=== PATIENT | female | born 1985 | race Caucasian/White ===

== ENCOUNTER 2018-02-02 00:43 | Emergency (ER) | payer BC, MEDICAID, OTHER ==
[2018-02-02] MEDS ORDERED: Albuterol-Ipratrop 3 mg / 0.5 (3 ml) UD IH STA ×2 (00:52→01:41)
--- NOTE | 2018-02-02 01:07 | ED PDOC ---
Arrival/HPI - General Chief Complaint: Shortness Of Breath Time Seen by Provider: 02/02/18 00:47 Historian: Patient - History of Present Illness Narrative History of Present Illness (Text): 02/02/18 00:52 32 year old female, whose past medical history includes bronchial asthma, presents to the emergency department complaining of wheezing and shortness of breath. Patient states she ran out of asthma medication. Patient denies any fever, chills, chest pain, abdominal pain, nausea, vomiting, diarrhea, urinary symptoms, back pain, neck pain, headache, dizziness, or any other complaints. Symptom Onset: Sudden Symptom Course: Unchanged Activities at Onset: Light Context: Home Past Medical History - Provider Review Nursing Documentation Reviewed: Yes - Infectious Disease Hx of Infectious Diseases: None - Tetanus Immunization Tetanus Immunization: Unknown - Cardiac Hx Cardiac Disorders: No - Pulmonary Hx Asthma: Yes (HOSPITALIZED 2 MONTHS AGO FOR ASTHMA ATTACK) Hx Sleep Apnea: Yes - Neurological Hx Neurological Disorder: No - HEENT Hx HEENT Disorder: No - Renal Hx Renal Disorder: No - Endocrine/Metabolic Hx Endocrine Disorders: No - Hematological/Oncological Hx Anemia: Yes - Integumentary Hx Dermatological Disorder: No - Musculoskeletal/Rheumatological Hx Musculoskeletal Disorders: No - Gastrointestinal Hx Gastrointestinal Disorders: No - Genitourinary/Gynecological Hx Genitourinary Disorders: No - Psychiatric Hx Psychophysiologic Disorder: No Hx Substance Use: No - Surgical History Hx Section: Yes (x2) - Anesthesia Hx Anesthesia: Yes Hx Anesthesia Reactions: No Hx Malignant Hyperthermia: No - Suicidal Assessment Feels Threatened In Home Enviroment: No Family/Social History - Physician Review Nursing Documentation Reviewed: Yes Family/Social History: No Known Family HX Smoking Status: Never Smoked Hx Alcohol Use: No Hx Substance Use: No Allergies/Home Meds Allergies/Adverse Reactions: Allergies seafood Adverse Reaction (Severe, Uncoded 02/02/18 00:50) ANAPHYLAXIS updated 05/23/16 Home Medications: Home Meds Medication Instructions Recorded Confirmed Albuterol 0.083% [Albuterol 0.083% 3 ml IH PRN PRN 04/25/16 02/02/18 Inhal Heather (2.5 mg/3 ml) UD] Review of Systems - Physician Review All systems were reviewed & negative as marked: Yes - Review of Systems Constitutional: absent: Fevers, Other (Chills) Respiratory: SOB, Wheezing Cardiovascular: absent: Chest Pain Gastrointestinal: absent: Abdominal Pain, Diarrhea, Nausea, Vomiting Genitourinary Female: absent: Dysuria, Frequency, Hematuria Musculoskeletal: absent: Back Pain, Neck Pain Neurological: absent: Headache, Dizziness Physical Exam Vital Signs Reviewed: Yes Vital Signs Pulse Resp BP Pulse Ox 02/02/18 01:05 20 97 02/02/18 00:43 97 H 20 129/65 99 Appearance: Positive for: Well-Appearing, Non-Toxic, Comfortable Pain Distress: None Mental Status: Positive for: Alert and Oriented X 3 - Systems Exam Head: Present: Atraumatic, Normocephalic Pupils: Present: PERRL Extroacular Muscles: Present: EOMI Conjunctiva: Present: Normal Ears: Present: NORMAL TM (Intact bilaterally) Mouth: Present: Moist Mucous Membranes Neck: Present: Normal Range of Motion Respiratory/Chest: Present: Wheezes (Bilaterally ). No: Respiratory Distress, Accessory Muscle Use Cardiovascular: Present: Regular Rate and Rhythm, Normal S1, S2. No: Murmurs Abdomen: No: Tenderness, Distention, Peritoneal Signs Back: Present: Normal Inspection Upper Extremity: Present: Normal Inspection. No: Cyanosis, Edema Lower Extremity: Present: Normal Inspection. No: Edema Neurological: Present: GCS=15, CN II-XII Intact, Speech Normal Skin: Present: Warm, Dry, Normal Color. No: Rashes Psychiatric: Present: Alert, Oriented x 3, Normal Insight, Normal Concentration Medical Decision Making ED Course and Treatment: 02/02/18 00:35 Impression: 32 year old female presents complaining of wheezing and shortness of breath. Patient's past medical history includes Asthma. Plan: -- Duoneb, prednisone tab -- Reassess and disposition Progress Notes: - Medication Orders Current Medication Orders: Discontinued Medications Albuterol/Ipratropium (Duoneb 3 Mg/0.5 Mg (3 Ml) Ud) 3 ml IH ONCE STA Stop: 02/02/18 00:53 Last Admin: 02/02/18 01:23 Dose: 3 ml Albuterol/Ipratropium (Duoneb 3 Mg/0.5 Mg (3 Ml) Ud) 3 ml IH ONCE STA Stop: 02/02/18 01:42 Last Admin: 02/02/18 01:47 Dose: 3 ml Prednisone (Prednisone Tab) 60 mg PO ONCE STA Stop: 02/02/18 00:54 Last Admin: 02/02/18 01:21 Dose: 60 mg - Virgenibe Statement The provider has reviewed the documentation as recorded by the Jeancarlos Young Provider Jeancarlos Attestation: All medical record entries made by the Jeancarlos were at my direction and personally dictated by me. I have reviewed the chart and agree that the record accurately reflects my personal performance of the history, physical exam, medical decision making, and the department course for this patient. I have also personally directed, reviewed, and agree with the discharge instructions and disposition. Disposition/Present on Arrival - Present on Arrival Any Indicators Present on Arrival: No History of DVT/PE: No History of Uncontrolled Diabetes: No Urinary Catheter: No History of Decub. Ulcer: No History Surgical Site Infection Following: None - Disposition Have Diagnosis and Disposition been Completed?: Yes Diagnosis: Asthma exacerbation Disposition: HOME/ ROUTINE Disposition Time: 02:22 Patient Plan: Discharge Patient Problems: Current Active Problems Problem Status Onset Asthma exacerbation Acute Condition: GOOD Additional Instructions: Medication as prescribed/follow up with your doctor this week Prescriptions: predniSONE [Prednisone] 40 mg PO DAILY #10 tab Albuterol HFA [Ventolin HFA 90 mcg/actuation (8 g)] 2 puff IH [id number] PRN #1 puff PRN Reason: Wheezing Referrals: Dangelo Aponte Jr., MD [Primary Care Provider] - Follow up with primary Forms: [employer] (Greenlandic)
[2018-02-02 01:32] VITALS: BP 129/65; PULSE 97; RESP 20
[2018-02-02 02:24] VITALS: O2SAT 97
== END 2018-02-02 02:28 | disposition home or self-care (01) ==
LOC: ED 00:43
DX: J45.901 Unspecified asthma with (acute) exacerbation (principal)

== ENCOUNTER 2018-03-05 21:47 | Emergency (ER) | payer MEDICAID, OTHER ==
[2018-03-05 21:50] VITALS: BMI 38.9
[2018-03-05 21:55] VITALS: PULSE 82; RESP 19; TEMP 99; O2SAT 100
[2018-03-05] MEDS ORDERED: Levalbuterol 1.25 MG/3 ML Inhal Soln UD IH STA ×2 (21:56→21:57)
--- NOTE | 2018-03-05 22:12 | ED PDOC ---
Arrival/HPI - General Historian: Patient - General Chief Complaint: Allergic Reaction Time Seen by Provider: 03/05/18 21:50 - History of Present Illness Narrative History of Present Illness (Text): 03/05/18 22:05 32yo morbidly obese female with PMhx of Asthma bib EMS for allergic reaction. Patient states she thinks the food she was eating at a restaurant was contaminated with seafood, and her throat became tight. Notes that this triggered her Asthma. She was given Benadryl 50mg on the field. She denies tongue swelling, drooling, stridor, any other complaint. (Yogesh,Happiness A) Past Medical History - Provider Review Nursing Documentation Reviewed: Yes - Infectious Disease Hx of Infectious Diseases: None - Tetanus Immunization Tetanus Immunization: Unknown - Cardiac Hx Cardiac Disorders: No - Pulmonary Hx Asthma: Yes (HOSPITALIZED 2 MONTHS AGO FOR ASTHMA ATTACK) Hx Sleep Apnea: Yes - Neurological Hx Neurological Disorder: No - HEENT Hx HEENT Disorder: No - Renal Hx Renal Disorder: No - Endocrine/Metabolic Hx Endocrine Disorders: No - Hematological/Oncological Hx Anemia: Yes - Integumentary Hx Dermatological Disorder: No - Musculoskeletal/Rheumatological Hx Musculoskeletal Disorders: No - Gastrointestinal Hx Gastrointestinal Disorders: No - Genitourinary/Gynecological Hx Genitourinary Disorders: No - Psychiatric Hx Psychophysiologic Disorder: No Hx Substance Use: No - Surgical History Hx Section: Yes (x2) - Anesthesia Hx Anesthesia: Yes Hx Anesthesia Reactions: No Hx Malignant Hyperthermia: No - Suicidal Assessment Feels Threatened In Home Enviroment: No Family/Social History - Physician Review Nursing Documentation Reviewed: Yes Family/Social History: Unknown Family HX Smoking Status: Never Smoked Hx Alcohol Use: No Hx Substance Use: No Allergies/Home Meds Allergies/Adverse Reactions: Allergies shellfish derived Allergy (Verified 03/05/18 21:51) ANAPHYLAXIS seafood Adverse Reaction (Severe, Uncoded 02/02/18 00:50) ANAPHYLAXIS updated 05/23/16 Home Medications: Home Meds Medication Instructions Recorded Confirmed Albuterol 0.083% [Albuterol 0.083% 3 ml IH PRN PRN 04/25/16 02/02/18 Inhal Heather (2.5 mg/3 ml) UD] Review of Systems - Physician Review All systems were reviewed & negative as marked: Yes - Review of Systems Constitutional: Normal Eyes: Normal ENT: Normal Respiratory: SOB Cardiovascular: Normal Gastrointestinal: Normal Genitourinary Female: Normal Musculoskeletal: Normal Skin: Normal Neurological: Normal Endocrine: Normal Hemo/Lymphatic: Normal Psychiatric: Normal Physical Exam Vital Signs Reviewed: Yes Temperature: Afebrile Blood Pressure: Normal Pulse: Regular Respiratory Rate: Normal Appearance: Positive for: Well-Appearing, Non-Toxic, Comfortable Pain Distress: None Mental Status: Positive for: Alert and Oriented X 3 - Systems Exam Head: Present: Atraumatic, Normocephalic Pupils: Present: PERRL Extroacular Muscles: Present: EOMI Conjunctiva: Present: Normal Mouth: Present: Moist Mucous Membranes Neck: Present: Normal Range of Motion Respiratory/Chest: Present: Good Air Exchange, Wheezes (Diffuse expiratory wheeze). No: Respiratory Distress, Accessory Muscle Use, Decreased Breath Sounds, Rales, Retracting, Rhonchi Cardiovascular: Present: Regular Rate and Rhythm, Normal S1, S2. No: Murmurs Abdomen: No: Tenderness, Distention, Peritoneal Signs Back: Present: Normal Inspection Upper Extremity: Present: Normal Inspection. No: Cyanosis, Edema Lower Extremity: Present: Normal Inspection. No: Edema Neurological: Present: GCS=15, CN II-XII Intact, Speech Normal Skin: Present: Warm, Dry, Normal Color. No: Rashes Psychiatric: Present: Alert, Oriented x 3, Normal Insight, Normal Concentration Vital Signs Temp Pulse Resp Pulse Ox 03/05/18 21:51 99 F 82 19 100 Medical Decision Making ED Course and Treatment: 03/05/18 23:15 Pt presented for stated history. She was given Benadryl by EMS on the field. In ED Solu medrol and Pepcid was given in ED. On review pt states she feels much better. Her lung was CTA. she was talking in full sentence without distress. ( Diru,Happiness A) - Medication Orders Current Medication Orders: Discontinued Medications Famotidine (Pepcid 20mg/50ml Premix) 20 mg in 50 mls @ 100 mls/hr IVPB STAT STA Stop: 03/05/18 22:52 Last Admin: 03/05/18 22:37 Dose: 100 mls/hr eMAR Start Stop Document 03/05/18 22:37 GEORGE (Rec: 03/05/18 22:38 [facility] [place], [id number]) Intravenous Solution Start Date 03/05/18 Start Time 22:38 End Date 03/05/18 End time 22:53 Total Infusion Time 15 Levalbuterol HCl (Xopenex) 1.25 mg IH STAT STA Stop: 03/05/18 21:57 Last Admin: 03/05/18 22:21 Dose: 1.25 mg Levalbuterol HCl (Xopenex) 1.25 mg IH STAT STA Stop: 03/05/18 21:58 Last Admin: 03/05/18 22:03 Dose: 1.25 mg Methylprednisolone (Solu-Medrol) 125 mg IVP STAT STA Stop: 03/05/18 21:56 Last Admin: 03/05/18 22:02 Dose: 125 mg IVP Administration Document 03/05/18 22:02 GEORGE (Rec: 03/05/18 22:03 [facility] [place], [id number]) Charges for Administration # of IVP Administrations 1 Disposition/Present on Arrival - Present on Arrival Any Indicators Present on Arrival: No History of DVT/PE: No History of Uncontrolled Diabetes: No Urinary Catheter: No History of Decub. 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
[2018-03-05] MEDS ORDERED: Famotidine 20mg/50ml 20 MG/50 ML BAG IVPB STA (22:23)
== END 2018-03-05 23:50 | disposition home or self-care (01) ==
LOC: ED 21:47
DX: L50.9 Urticaria, unspecified (principal); E66.01 Morbid (severe) obesity due to excess calories
CPT/HCPCS: 96374; 99283; J2930

== ENCOUNTER 2018-12-26 23:43 | Emergency (ER) | payer MEDICAID ==
[2018-12-26 23:45] VITALS: BMI 38.9
[2018-12-27 00:01] VITALS: BP 126/80; PULSE 80; RESP 17; TEMP 98.2; O2SAT 100
--- NOTE | 2018-12-27 00:05 | ED PDOC ---
Arrival/HPI - General Chief Complaint: Female Genitourinary Time Seen by Provider: 12/26/18 23:46 - History of Present Illness Narrative History of Present Illness (Text): 12/27/18 00:46 Jay Jiménez is a 33 year old female, with a past medical history of bronchitis, yeast infection, asthma, gastrectomy, and , who presents to the emergency department complaining of white vaginal discharge, pain, swelling, and itching for 5 days. Patient informs she started control (Islibloom) 2 weeks ago and did not take control previously. Patient informs she is unable to walk secondary to pain. Patient informs taking antifungal medication such as monistat and fluconazole with significant improvement of previous maegan infections, but notes no significant improvement for current symptoms. Patient notes increased urinary frequency but no change in urine color. Patient also notes lightheadedness. Patient denies fevers, chills, headache, dizziness, chest pain, shortness of breath, dyspnea on exertion, cough, abdominal pain, nausea, vomiting, diarrhea, back pain, neck pain, or any other complaint. Time/Duration: < week (symptoms for 5 days; changed control 2 weeks ago) Symptom Onset: Gradual Symptom Course: Unchanged Activities at Onset: Light Context: Home Past Medical History - Provider Review Nursing Documentation Reviewed: Yes - Infectious Disease Hx of Infectious Diseases: None - Tetanus Immunization Tetanus Immunization: Unknown - Cardiac Hx Cardiac Disorders: No - Pulmonary Hx Asthma: Yes Hx Sleep Apnea: Yes - Neurological Hx Neurological Disorder: No - HEENT Hx HEENT Disorder: No - Renal Hx Renal Disorder: No - Endocrine/Metabolic Hx Endocrine Disorders: No - Hematological/Oncological Hx Anemia: Yes - Integumentary Hx Dermatological Disorder: No - Musculoskeletal/Rheumatological Hx Musculoskeletal Disorders: No - Gastrointestinal Hx Gastrointestinal Disorders: No - Genitourinary/Gynecological Hx Genitourinary Disorders: No - Psychiatric Hx Psychophysiologic Disorder: No Hx Substance Use: No - Surgical History Hx Section: Yes (x3) - Anesthesia Hx Anesthesia: Yes Hx Anesthesia Reactions: No Hx Malignant Hyperthermia: No - Suicidal Assessment Feels Threatened In Home Enviroment: No Family/Social History - Physician Review Nursing Documentation Reviewed: Yes Family/Social History: Diabetes Smoking Status: Never Smoked Hx Alcohol Use: No Hx Substance Use: No Allergies/Home Meds Allergies/Adverse Reactions: Allergies shellfish derived Allergy (Verified 12/27/18 00:01) ANAPHYLAXIS seafood Adverse Reaction (Severe, Uncoded 12/27/18 00:01) ANAPHYLAXIS updated 05/23/16 Home Medications: Home Meds Medication Instructions Recorded Confirmed Desogestrel-Ethinyl Estradiol 1 tab PO DAILY 12/27/18 12/27/18 [Isibloom 28 Day Tablet] Review of Systems - Physician Review All systems were reviewed & negative as marked: Yes - Review of Systems Constitutional: absent: Fevers, Night Sweats Respiratory: absent: SOB, Cough Cardiovascular: absent: Chest Pain, JOSHUA Gastrointestinal: absent: Abdominal Pain, Diarrhea, Nausea, Vomiting Genitourinary Female: Frequency (increased urinary frequency, no change in urine color), Vaginal Discharge (white discharge), Other (vaginal swelling, pain, itching) Musculoskeletal: absent: Back Pain, Neck Pain Neurological: Dizziness (lightheadedness). absent: Headache Physical Exam - Physical Exam Narrative Physical Exam (Text): 12/27/18 23:46 General: Obese. Vital Signs Reviewed: Yes Vital Signs Temp Pulse Resp BP Pulse Ox 12/27/18 00:01 98.2 F 80 17 126/80 100 Temperature: Afebrile Blood Pressure: Normal Pulse: Regular Respiratory Rate: Normal Appearance: Positive for: Well-Appearing, Non-Toxic, Comfortable Pain Distress: None Mental Status: Positive for: Alert and Oriented X 3 - Systems Exam Head: Present: Atraumatic, Normocephalic Pupils: Present: PERRL Extroacular Muscles: Present: EOMI Conjunctiva: Present: Normal Mouth: Present: Moist Mucous Membranes Neck: Present: Normal Range of Motion Respiratory/Chest: Present: Clear to Auscultation, Good Air Exchange. No: Respiratory Distress, Accessory Muscle Use Cardiovascular: Present: Regular Rate and Rhythm, Normal S1, S2. No: Murmurs Abdomen: No: Tenderness, Distention, Peritoneal Signs Genitourinary/Pelvic Exam: Present: Vaginal Discharge (white, thin discharge inside vaginal vault), Other (Slight uterine tenderness). No: Vaginal Lesions (No vulvar legions.), Adenexal Tenderness Back: Present: Normal Inspection Upper Extremity: Present: Normal Inspection. No: Cyanosis, Edema Lower Extremity: Present: Normal Inspection. No: Edema Neurological: Present: GCS=15, Speech Normal Skin: Present: Warm, Dry, Normal Color. No: Rashes Psychiatric: Present: Alert, Oriented x 3, Normal Insight, Normal Concentration Medical Decision Making ED Course and Treatment: 12/27/18 23:46 Impression: Patient is a 33 year old female who presents to the emergency department complaining of vaginal swelling, itching, and discharge after taking control. Differential Diagnosis included but are not limited to: Plan: -- Flagyl -- Urine Culture -- Urinalysis w/ Micro -- POC Urine Test -- Reassess and disposition Prior Visits: Notes and results from previous visits were reviewed. Progress Notes: - Scribe Statement The provider has reviewed the documentation as recorded by the Scribe Yousuf Hagan All medical record entries made by the Scribe were at my direction and personally dictated by me. I have reviewed the chart and agree that the record accurately reflects my personal performance of the history, physical exam, medical decision making, and the department course for this patient. I have also personally directed, reviewed, and agree with the discharge instructions and disposition. Disposition/Present on Arrival - Present on Arrival Any Indicators Present on Arrival: No History of DVT/PE: No History of Uncontrolled Diabetes: No Urinary Catheter: No History of Decub. Ulcer: No History Surgical Site Infection Following: None - Disposition Have Diagnosis and Disposition been Completed?: Yes Diagnosis: Adverse effects of medication, Vaginitis Disposition: HOME/ ROUTINE Disposition Time: 00:53 Patient Plan: Discharge Patient Problems: Current Active Problems Problem Status Onset Adverse effects of medication Acute Vaginitis Acute Condition: STABLE Discharge Instructions (ExitCare): Bacterial Vaginosis (DC), Adverse Drug Reactions, Adult (DC), Vaginitis Print Language: JAPANESE Additional Instructions: All medical record entries made by the Scribe were at my direction and personally dictated by me. I have reviewed the chart and agree that the record accurately reflects my personal performance of the history, physical exam, medical decision making, and the department course for this patient. I have also personally directed, reviewed, and agree with the discharge instructions and disposition. Please try to avoid sexual activity until you are able to visit your instructional technology coordinator Please take medication as prescribed. Please discuss with your instructional technology coordinator in regards to other control options Prescriptions: Metronidazole [Flagyl] 500 mg PO BID #14 tablet Referrals: Dangelo Aponte Jr., MD [Primary Care Provider] - Follow up with primary Benigno Delgado MD [Medical Doctor] - Follow up with primary Forms: [employer] ([place]er), WORK NOTE
[2018-12-27 00:33] LABS: URINE BILIRUBIN NEGATIVE (NEGATIVE); URINE BLOOD NEGATIVE (NEGATIVE); URINE GLUCOSE (UA) NEGATIVE (NEGATIVE); URINE LEUKOCYTE ESTERASE TRACE Leu/uL (NEGATIVE); URINE PROTEIN NEGATIVE mg/dL (<30 mg/dL); URINE UROBILINOGEN 0.2 E.U./dL (<1 E.U./dL)
[2018-12-27 00:38] LABS: URINE APPEARANCE CLEAR (CLEAR); URINE COLOR YELLOW (YELLOW)
[2018-12-27 00:52] LABS: URINE BACTERIA RARE /hpf
== END 2018-12-27 01:06 | disposition home or self-care (01) ==
LOC: ED 23:43
DX: N76.0 Acute vaginitis (principal); T50.995A Adverse effect of other drugs, medicaments and biological substances, initial encounter; Y92.89 Other specified places as the place of occurrence of the external cause

== ENCOUNTER 2019-03-10 12:57 | Observation (INO) | payer MEDICAID ==
--- NOTE | 2019-03-10 13:45 | ED PDOC ---
Arrival/HPI <Jareth Ocampo - Last Filed: 03/10/19 15:41> - General Historian: Patient - History of Present Illness Narrative History of Present Illness (Text): 03/10/19 13:44 Patient is a 33 yo obese female with asthma who presents with SOB. Patient states that she started to become more short of breath 2 days ago. She has been using her rescue inhaler every 4 hours without relief in addition to her daily asthma medications. She notes worsening associated symptoms of chest pain and cough. She describes subjective fevers and chills. She was last hospitalized 1 year ago for her asthma. She was intubated 5 years ago. Time/Duration: < week Symptom Onset: Gradual Symptom Course: Worsening <Elly Paiz - Last Filed: 03/10/19 16:05> - General Chief Complaint: Shortness Of Breath Time Seen by Provider: 03/10/19 13:23 Past Medical History - Provider Review Nursing Documentation Reviewed: Yes Primary Care Provider: Dangelo Aponte Jr. - Infectious Disease Hx of Infectious Diseases: None - Tetanus Immunization Tetanus Immunization: Unknown - Reproductive Menopause: No - Cardiac Hx Cardiac Disorders: No - Pulmonary Hx Asthma: Yes Hx Sleep Apnea: Yes - Neurological Hx Neurological Disorder: No - HEENT Hx HEENT Disorder: No - Renal Hx Renal Disorder: No - Endocrine/Metabolic Hx Endocrine Disorders: No - Hematological/Oncological Hx Anemia: Yes - Integumentary Hx Dermatological Disorder: No - Musculoskeletal/Rheumatological Hx Musculoskeletal Disorders: No - Gastrointestinal Hx Gastrointestinal Disorders: No - Genitourinary/Gynecological Hx Genitourinary Disorders: No - Psychiatric Hx Psychophysiologic Disorder: No Hx Substance Use: No - Surgical History Hx Section: Yes (x3) - Anesthesia Hx Anesthesia: Yes Hx Anesthesia Reactions: No Hx Malignant Hyperthermia: No - Suicidal Assessment Feels Threatened In Home Enviroment: No <Elly Paiz - Last Filed: 03/10/19 16:05> Family/Social History - Physician Review Nursing Documentation Reviewed: Yes Family/Social History: Unknown Family HX Smoking Status: Never Smoked Hx Alcohol Use: No Hx Substance Use: No <Elly Paiz - Last Filed: 03/10/19 16:05> Allergies/Home Meds <Jareth Ocampo - Last Filed: 03/10/19 15:41> <Elly Paiz - Last Filed: 03/10/19 16:05> Allergies/Adverse Reactions: Allergies shellfish derived Allergy (Verified 12/27/18 00:01) ANAPHYLAXIS seafood Adverse Reaction (Severe, Uncoded 12/27/18 00:01) ANAPHYLAXIS updated 05/23/16 Home Medications: Home Meds Medication Instructions Recorded Confirmed Prednisone 50 mg PO PRN 03/10/19 03/10/19 Review of Systems - Review of Systems Constitutional: Fevers Eyes: Normal ENT: Normal Respiratory: SOB, Cough, Wheezing. absent: Sputum Cardiovascular: Chest Pain, Palpitations Gastrointestinal: absent: Abdominal Pain, Nausea, Vomiting Genitourinary Female: absent: Dysuria, Hematuria Musculoskeletal: absent: Myalgias Skin: absent: Rash, Pruritis, Skin Lesions Neurological: absent: Headache, Dizziness Endocrine: absent: Diaphoresis Hemo/Lymphatic: absent: Adenopathy <Elly Paiz - Last Filed: 03/10/19 16:05> Physical Exam Vital Signs Temp Pulse Resp BP Pulse Ox 03/10/19 13:30 20 03/10/19 13:11 98.4 F 106 H 17 128/91 H 100 <Jareth Ocampo - Last Filed: 03/10/19 15:41> Vital Signs Reviewed: Yes Vital Signs Temp Pulse Resp BP Pulse Ox 03/10/19 13:11 98.4 F 106 H 17 128/91 H 100 Temperature: Afebrile Blood Pressure: Normal Pulse: Tachycardic Respiratory Rate: Normal Appearance: Positive for: Uncomfortable Pain Distress: Mild Mental Status: Positive for: Alert and Oriented X 3 - Systems Exam Head: Present: Atraumatic, Normocephalic Pupils: Present: PERRL Extroacular Muscles: Present: EOMI Conjunctiva: Present: Normal Mouth: Present: Moist Mucous Membranes Pharnyx: Present: Normal Neck: No: Lymphadenopathy Respiratory/Chest: Present: Wheezes, Decreased Breath Sounds. No: Respiratory Distress Cardiovascular: Present: Normal S1, S2, Tachycardic Back: Present: Normal Inspection Neurological: Present: GCS=15, CN II-XII Intact. No: Speech Normal (hoarse) Skin: Present: Warm, Dry, Normal Color Lymphatic: No: Cervical Adenopathy Psychiatric: Present: Alert, Oriented x 3, Normal Insight, Normal Concentration <Elly Paiz - Last Filed: 03/10/19 16:05> Medical Decision Making ED Course and Treatment: 03/10/19 15:28 Patient seen and examined with resident. 33 year old F with chief complaint of SOB x2days. Wheezing and decreased breath sounds noted - RAD Interpretation Radiology Orders: 03/10/19 13:49 CXR [CHEST PORTABLE] [RAD] Stat - Medication Orders Current Medication Orders: Discontinued Medications Albuterol/Ipratropium (Duoneb 3 Mg/0.5 Mg (3 Ml) Ud) 3 ml IH Q15M TRIPP Stop: 03/10/19 14:31 Last Admin: 03/10/19 14:27 Dose: 3 ml Methylprednisolone (Solu-Medrol) 125 mg IVP STAT STA Stop: 03/10/19 13:50 Last Admin: 03/10/19 14:10 Dose: 125 mg IVP Administration Document 03/10/19 14:10 EQ (Rec: 03/10/19 14:10 EQ [id number]) Charges for Administration # of IVP Administrations 1 <Jareth Ocampo - Last Filed: 03/10/19 15:41> ED Course and Treatment: 03/10/19 14:38 Patient reports feeling the same after 2 neb treatments. Wheezing still present. 03/10/19 15:57 Patient re-evaluated after 3 neb treatments. She states that she is still not feeling well. No respiratory distress. Wheezing present but improved. Discussed history of anemia. Patient's LMP 5/2. Never had a blood transfusion. Never took iron. 03/10/19 16:[address] Crawley who accepts the patient to hospitalist service for observation. Re-evaluation Time: 15:59 Reassessment Condition: Improving,but remains with symptoms - Lab Interpretations I have reviewed the lab results: Yes Interpretation: Abnormal lab values (elev WBC with left shift (18- post steroid), low Hgb (7), low K (3.2- post Duoneb)) - RAD Interpretation Radiology Orders: CXR Employment Training Specialist: ED Physician - EKG Interpretation EKG Interpretation (Text): 03/10/19 13:51 sinus tachycardia, LVH Interpreted by ED Physician: Yes Type: 12 lead EKG Comparison: Com.w/previous EKG - Medication Orders Current Medication Orders: 03/10/19 13:51 Duoneb x3 Solu-Medrol 125 mg IVP <Elly Paiz - Last Filed: 03/10/19 16:05> - Scribe Statement The provider has reviewed the documentation as recorded by the Jeancarlos Magaña All medical record entries made by the Scribe were at my direction and personally dictated by me. I have reviewed the chart and agree that the record accurately reflects my personal performance of the history, physical exam, medical decision making, and the department course for this patient. I have also personally directed, reviewed, and agree with the discharge instructions and disposition. <Jareth Ocampo - Last Filed: 03/10/19 15:41> Disposition/Present on Arrival <Jareth Ocampo - Last Filed: 03/10/19 15:41> - Present on Arrival Any Indicators Present on Arrival: No History of DVT/PE: No History of Uncontrolled Diabetes: No Urinary Catheter: No History of Decub. Ulcer: No History Surgical Site Infection Following: None - Disposition Have Diagnosis and Disposition been Completed?: Yes Disposition Time: 16:05 Patient Plan: Admission, Observation <Elly Paiz - Last Filed: 03/10/19 16:05> - Disposition Diagnosis: Asthma exacerbation, Acute on chronic anemia Disposition: HOSPITALIZED Condition: FAIR Referrals: Dangelo Aponte Jr., MD [Medical Doctor] - Follow up with primary Forms: iubenda (Djiboutian)
[2019-03-10] MEDS: Albuterol-Ipratrop 3 mg / 0.5 (3 ml) UD IH SCH ×2 (14:10→14:27)
[2019-03-10 15:41] LABS: ALB/GLOB RATIO 1.2 (1.1-1.8); ALBUMIN 4.3 g/dL (3.0-4.8); ALT/SGPT 18 U/L (7-56); AST/SGOT 20 U/L (14-36); BLOOD UREA NITROGEN 7 mg/dL (7-21); GFR NON-AFRICAN AMERICAN > 60
[2019-03-10 15:44] LABS: BASO # 0.03 K/mm3 (0.0-2.0); BASO % 0.2 % (0.0-3.0); EOS # 0.2 (0.0-0.7); EOS % 1.1 % (1.5-5.0); LYMPH # 2.1 (1.2-3.4); LYMPH % 11.6 % (22.0-35.0); MEAN CORPUSCULAR HEMOGLOBIN 15.4 pg (25.0-35.0); MONO # 0.6 (0.1-0.6); MONO % 3.2 % (1.0-6.0); PLATELET COUNT 404 10^3/uL (120.0-450.0); RBC 4.54 10^6/uL (3.5-6.1); RED CELL DISTRIBUTION WIDTH 20.9 % (11.5-14.5)
--- NOTE | 2019-03-10 17:31 | RAD ---
Date of service: 03/10/2019 HISTORY: Shortness of breath, wheezing COMPARISON: No prior. FINDINGS: LUNGS: No active pulmonary disease. PLEURA: No significant pleural effusion identified, no pneumothorax apparent. CARDIOVASCULAR: No atherosclerotic calcification present Normal. OSSEOUS STRUCTURES: No significant abnormalities. VISUALIZED UPPER ABDOMEN: Normal. OTHER FINDINGS: None. IMPRESSION: No active disease. Limitations of the current examination: Portable technique, poor inspiratory effort.
[2019-03-10] MEDS ORDERED: Potassium Chloride 20 mEq ER Tab PO STA ×2 (17:33→18:06)
[2019-03-10] MEDS ORDERED: Albuterol-Ipratrop 3 mg / 0.5 (3 ml) UD IH PRN (18:00)
[2019-03-10 18:52] LABS: IRON 20 ug/dL (45-180)
[2019-03-10 19:01] LABS: % IRON SATURATION 4 % (20-55); TOTAL IRON BINDING CAPACITY 458 ug/dL (265-497)
--- NOTE | 2019-03-10 19:08 | CP.PCM.HP ---
<Ana Dominguez - Last Filed: 03/10/19 18:57> History of Present Illness - History of Present Illness History of Present Illness: Ana Dominguez, PGY-1, Internal Medicine History and Physical for Dr. Crawley 33 year old female with past medical history of asthma and iron deficiency anemia presents with shortness of breath, wheezing, cough with yellow sputum for 2 days. Patient also complains of diffuse body pain worse with movement and not relieved with tylenol, ibuprofen, and prednisone. Patient also reports dizziness for the past 2 days and has not been able to do her daily activities. She reports having shortness of breath episodes twice a month during the day and once a weeks for nighttime symptoms. Patient reports she has generally been hospitalized 2-3 times per years for asthma and also goes to [facility] [place]. She reports using an albuterol inhaler daily. She reports seeing a student development specialist in [facility] for sleep apnea but cannot remember his name. She had an ap pointment 6 months ago for sleep study but was never given CPAP machine. Patient also reports having a history of iron deficiency anemia which she recently found out about. She reports her periods have been normal with no increase in bleeding and occur once a month for 5-7 days. She reports no dizziness with periods. She has never been treated for iron deficiency anemia. She reports never having been on treatment for iron deficiency anemia. She denies nausea, vomiting, constipation diarrhea, dysuria, hematuria. 12-point ROS was unremarkable except for what was mentioned above. PMH: as stated above PSH: 3 C sections in 2006, 2010, 2015 FMHx: Mother: diabetes, hypertension, Father: asthma SHx: denies alcohol, tobacco, or recreational drug use. She works for [employer] Allergies: seafood PMD: Dr. Aponte in [place] Pharmacy: [facility] [address] Home Medications: last picked up in December: Desogestrl/Ethinyl estradiol 1 pill daily. No inhalers. Confirmed with pharmacy Present on Admission - Present on Admission Any Indicators Present on Admission: No Review of Systems - Review of Systems Review of Systems: except as mentioned in HPI Past Patient History - Infectious Disease Hx of Infectious Diseases: None - Tetanus Immunizations Tetanus Immunization: Unknown - Past Medical History & Family History Past Medical History?: Yes - Past Social History Smoking Status: Never Smoked - CARDIAC Hx Cardiac Disorders: No - PULMONARY Hx Asthma: Yes Hx Sleep Apnea: Yes - NEUROLOGICAL Hx Neurological Disorder: No - HEENT Hx HEENT Problems: No - RENAL Hx Chronic Kidney Disease: No - ENDOCRINE/METABOLIC Hx Endocrine Disorders: No - HEMATOLOGICAL/ONCOLOGICAL Hx Anemia: Yes - INTEGUMENTARY Hx Dermatological Problems: No - MUSCULOSKELETAL/RHEUMATOLOGICAL Hx Musculoskeletal Disorders: No - GASTROINTESTINAL Hx Gastrointestinal Disorders: No - GENITOURINARY/GYNECOLOGICAL Hx Genitourinary Disorders: No - PSYCHIATRIC Hx Psychophysiologic Disorder: No Hx Substance Use: No - SURGICAL HISTORY Hx Section: Yes (x3) - ANESTHESIA Hx Anesthesia: Yes Hx Anesthesia Reactions: No Hx Malignant Hyperthermia: No Meds Home Medications: Home Medication List Medication Instructions Recorded Confirmed Type Albuterol/Ipratropium [Duoneb 3 3 ml IH [id number] #6 neb 03/11/19 Rx mg/0.5 mg (3 ml) UD] Arformoterol [Brovana] 15 mcg IH [id number] #28 neb 03/11/19 Rx Budesonide [Pulmicort Respules] 0.5 mg IH [id number] #28 neb 03/11/19 Rx Docusate Sodium [Colace] 100 mg PO BID #14 capsule 03/11/19 Rx Ferrous Gluconate 324 mg PO TID #90 tablet 03/11/19 Rx Methylprednisolone [Medrol Dose 4 mg PO DAILY #21 mg 03/11/19 Rx Pack (21 tabs)] Multivitamin [Multiple Vitamins] 1 each PO DAILY #30 tablet 03/11/19 Rx Allergies/Adverse Reactions: Allergies Allergy/AdvReac Type Severity Reaction Status Date / Time shellfish derived Allergy ANAPHYLAXIS Verified 03/10/19 18:57 seafood AdvReac Severe ANAPHYLAXIS Uncoded 03/10/19 18:57 Physical Exam - Constitutional Appears: Well, Non-toxic, No Acute Distress - Head Exam Head Exam: ATRAUMATIC, NORMAL INSPECTION, NORMOCEPHALIC - Eye Exam Eye Exam: EOMI, PERRL - ENT Exam ENT Exam: Mucous Membranes Moist - Neck Exam Neck exam: Positive for: Normal Inspection - Respiratory Exam Respiratory Exam: Wheezes (mild), NORMAL BREATHING PATTERN. absent: Rales, Rhonchi, Stridor - Cardiovascular Exam Cardiovascular Exam: Tachycardia, REGULAR RHYTHM, +S1, +S2. absent: Clicks, Gallop, Rubs - GI/Abdominal Exam GI & Abdominal Exam: Normal Bowel Sounds, Soft. absent: Distended, Firm, Guarding, Tenderness - Extremities Exam Extremities exam: Positive for: full ROM, normal inspection - Neurological Exam Neurological exam: Alert, CN II-XII Intact, Oriented x3 - Psychiatric Exam Psychiatric exam: Normal Affect, Normal Mood - Skin Skin Exam: Dry, Intact, Normal Color Results - Vital Signs Recent Vital Signs: Last Vital Signs Temp 98.0 F 03/10/19 18:01 Pulse 103 H 03/10/19 18:01 Resp 18 03/10/19 18:01 BP 117/74 03/10/19 18:01 Pulse Ox 100 03/10/19 18:01 - Labs Result Diagrams: 03/10/19 15:20 03/10/19 15:20 Labs: Laboratory Results - last 24 hr 03/10/19 03/10/19 03/10/19 15:20 15:20 15:20 WBC 18.0 H RBC 4.54 Hgb 7.0 L Hct 25.9 L MCV 57.0 L MCH 15.4 L MCHC 27.0 L RDW 20.9 H Plt Count 404 Neut % (Auto) 83.9 H Lymph % (Auto) 11.6 L [place] % (Auto) 3.2 Eos % (Auto) 1.1 L Baso % (Auto) 0.2 Lymph # (Auto) 2.1 [place] # (Auto) 0.6 Eos # (Auto) 0.2 Baso # (Auto) 0.03 Absolute Neuts (auto) 15.12 H Sodium 140 Potassium 3.2 L Chloride 105 Carbon Dioxide 25 Anion Gap 13 BUN 7 Creatinine 0.7 Est GFR ( Amer) > 60 Est GFR (Non-Af Amer) > 60 Random Glucose 110 Calcium 9.0 Phosphorus 3.0 Magnesium 1.8 Iron Total Bilirubin 0.6 AST 20 ALT 18 Alkaline Phosphatase 50 Troponin I < 0.01 Total Protein 7.9 Albumin 4.3 Globulin 3.6 Albumin/Globulin Ratio 1.2 Influenza Typ A,B (EIA) Blood Type Antibody Screen Crossmatch BBK History Checked 03/10/19 03/10/19 03/10/19 17:35 18:15 18:38 WBC RBC Hgb Hct MCV MCH MCHC RDW Plt Count Neut % (Auto) Lymph % (Auto) [place] % (Auto) Eos % (Auto) Baso % (Auto) Lymph # (Auto) [place] # (Auto) Eos # (Auto) Baso # (Auto) Absolute Neuts (auto) Sodium Potassium Chloride Carbon Dioxide Anion Gap BUN Creatinine Est GFR ( Amer) Est GFR (Non-Af Amer) Random Glucose Calcium Phosphorus Magnesium Iron 20 L Total Bilirubin AST ALT Alkaline Phosphatase Troponin I Total Protein Albumin Globulin Albumin/Globulin Ratio Influenza Typ A,B (EIA) Negative for flu a/b Blood Type O POSITIVE Antibody Screen Negative Crossmatch See Detail BBK History Checked Patient has bt Assessment & Plan - Assessment and Plan (Free Text) Assessment: 33 year old female with past medical history of asthma and iron deficiency anemia presented with shortness of breath and generalized body aches likely 2/2 to asthma or iron deficiency anemia Plan: Asthma exacerbation -Given solumedrol 125 and duonebs in the emergency department -Start patient on duonebs 3 Q6 and Q2PRN for shortness of breath -Start brovana and pulmicort -Start solumedrol 40 Q12 from tomorrow -Influenza negative -O2 nasal cannula as needed for O2<93% Iron deficiency anemia -Hgb: 7 with baseline 8-9 -Type and screen -Type and Crossmatch -Will transfuse 1 U of PRBCs -Will give venofer 200 for 2 days -Will obtain iron, TIBC, ferritin Atypical chest pain -EKG: sinus tachycardia with HR: 108 -Will obtain troponinx3 to rule out NSTEMI Hypokalemia -Replete as necessary GI prophylaxis: protonix DVT prophylaxis: lovenox Patient plan discussed with Dr. Crawley - Date & Time Date: 03/10/19 Time: 19:09 <Lizzette Crawley - Last Filed: 03/11/19 18:47> Results - Vital Signs Recent Vital Signs: Last Vital Signs Temp 98.5 F 03/11/19 14:33 Pulse 106 H 03/11/19 14:33 Resp 16 03/11/19 14:33 BP 123/67 03/11/19 14:33 Pulse Ox 99 03/11/19 06:00 - Labs Result Diagrams: 03/11/19 05:20 03/11/19 05:20 Labs: Laboratory Results - last 24 hr 03/10/19 03/10/19 03/10/19 17:35 18:15 18:38 WBC RBC Hgb Hct MCV MCH MCHC RDW Plt Count Neut % (Auto) Lymph % (Auto) [place] % (Auto) Eos % (Auto) Baso % (Auto) Lymph # (Auto) [place] # (Auto) Eos # (Auto) Baso # (Auto) Absolute Neuts (auto) Neutrophils % (Manual) Band Neutrophils % Lymphocytes % (Manual) Monocytes % (Manual) Metamyelocytes % Platelet Evaluation Polychromasia Hypochromasia Anisocytosis (manual) Ovalocytes Sodium Potassium Chloride Carbon Dioxide Anion Gap BUN Creatinine Est GFR ( Amer) Est GFR (Non-Af Amer) Random Glucose Calcium Phosphorus Magnesium Iron TIBC % Saturation Ferritin 5.9 Total Bilirubin AST ALT Alkaline Phosphatase Troponin I Total Protein Albumin Globulin Albumin/Globulin Ratio Vitamin B12 Folate Influenza Typ A,B (EIA) Negative for flu a/b Blood Type O POSITIVE Antibody Screen Negative Crossmatch See Detail BBK History Checked Patient has bt 03/10/19 03/10/19 03/11/19 18:38 23:16 05:20 WBC RBC Hgb Hct MCV MCH MCHC RDW Plt Count Neut % (Auto) Lymph % (Auto) [place] % (Auto) Eos % (Auto) Baso % (Auto) Lymph # (Auto) [place] # (Auto) Eos # (Auto) Baso # (Auto) Absolute Neuts (auto) Neutrophils % (Manual) Band Neutrophils % Lymphocytes % (Manual) Monocytes % (Manual) Metamyelocytes % Platelet Evaluation Polychromasia Hypochromasia Anisocytosis (manual) Ovalocytes Sodium 142 Potassium 4.4 Chloride 108 H Carbon Dioxide 25 Anion Gap 14 BUN 8 Creatinine 0.6 L Est GFR ( Amer) > 60 Est GFR (Non-Af Amer) > 60 Random Glucose 129 H Calcium 9.5 Phosphorus Magnesium Iron 20 L TIBC 458 % Saturation 4 L Ferritin Total Bilirubin 0.3 AST 24 ALT 13 Alkaline Phosphatase 47 Troponin I < 0.01 < 0.01 Total Protein 7.7 Albumin 4.0 Globulin 3.7 Albumin/Globulin Ratio 1.1 Vitamin B12 Folate Influenza Typ A,B (EIA) Blood Type Antibody Screen Crossmatch BBK History Checked 03/11/19 03/11/19 03/11/19 05:20 07:55 18:00 WBC 19.3 H RBC 4.71 Hgb 7.8 L Hct 28.2 L MCV 59.9 L MCH 16.6 L MCHC 27.7 L RDW 23.7 H Plt Count 407 Neut % (Auto) 92.4 H Lymph % (Auto) 5.5 L [place] % (Auto) 2.1 Eos % (Auto) 0.0 L Baso % (Auto) 0.0 Lymph # (Auto) 1.1 L [place] # (Auto) 0.4 Eos # (Auto) 0.0 Baso # (Auto) 0.00 Absolute Neuts (auto) 17.85 H Neutrophils % (Manual) 79 H Band Neutrophils % 7 H Lymphocytes % (Manual) 10 L Monocytes % (Manual) 3 Metamyelocytes % 1 Platelet Evaluation Normal Polychromasia Slight Hypochromasia 2+ Anisocytosis (manual) 1+ Ovalocytes Slight Sodium Potassium Chloride Carbon Dioxide Anion Gap BUN Creatinine Est GFR ( Amer) Est GFR (Non-Af Amer) Random Glucose Calcium Phosphorus 4.1 Magnesium 2.2 Iron TIBC % Saturation Ferritin Total Bilirubin AST ALT Alkaline Phosphatase Troponin I Total Protein Albumin Globulin Albumin/Globulin Ratio Vitamin B12 295 Folate 4.9 Influenza Typ A,B (EIA) Blood Type Antibody Screen Crossmatch BBK History Checked Attending/Attestation - Attestation I have personally seen and examined this patient.: Yes I have fully participated in the care of the patient.: Yes I have reviewed all pertinent clinical information: Yes Notes (Text): 03/11/19 18:42 Attending note; Patient seen and examined with resident in ER. Patient is alert and awake. Complaining of extreme tiredness and not able to do her daily activities. Denies any fevers, chills. Complaining of generalized body ache. Complaining of cough and shortness of breath and wheezing. Patient is a 33 year old female with past medical history of asthma and iron deficiency anemia presents with shortness of breath, wheezing, cough with yellow sputum for 2 days. Patient also complains of diffuse body pain. 1. Acute asthma exacerbation; started on duo nebs, IV Solu-Medrol, Pulmicort. 2. Severe symptomatic iron deficiency anemia PRBC transfusion ordered. Consent obtained. Risks and benefits explained to the patient in detail. 3. Dysfunctional uterine bleeding; patient currently has no active bleeding. Used to take oral contraceptive pills. Stopped 2 months ago. Advised to follow-up with H[employer] [employer] TRAINER as outpatient. 4. Myalgia; influenza is negative. 5. Chest discomfort; EKG is normal. Cardiac enzymes negative. Monitor closely. Upon discharge the patient will follow up with PMD Dr. Aponte. Patient needs close follow-up with HUMAN RESOURCES TRAINER as outpatient.
[2019-03-10] MEDS ORDERED: Arformoterol 15 mcg/2 ml Inh Sol IH SCH (20:00)
[2019-03-10 22:30] VITALS: BMI 41.6
[2019-03-10] MEDS ORDERED: Pneumococcal 23-Valent Vaccine IM ONE (22:30)
[2019-03-11] MEDS: Budesonide 0.5 mg/2 ml Inhal Susp UD IH SCH ×3 (00:04→20:03)
[2019-03-11] MEDS: Arformoterol 15 mcg/2 ml Inh Sol IH SCH ×3 (00:04→20:02)
[2019-03-11] MEDS: Albuterol-Ipratrop 3 mg / 0.5 (3 ml) UD IH SCH ×5 (00:05→20:02)
[2019-03-11] MEDS ORDERED: Pantoprazole 40 mg EC Tab PO SCH (06:00)
[2019-03-11 06:03] LABS: HEMOGLOBIN 7.8 g/dL (12.0-16.0); LYMPH # 1.1 (1.2-3.4); LYMPH % 5.5 % (22.0-35.0); MEAN CELL VOLUME 59.9 fl (80.0-105.0); MEAN CORPUSCULAR HEMOGLOBIN 16.6 pg (25.0-35.0); MEAN CORPUSCULAR HGB CONC 27.7 g/dl (31.0-37.0); MONO # 0.4 (0.1-0.6); MONO % 2.1 % (1.0-6.0); PLATELET COUNT 407 10^3/uL (120.0-450.0); RBC 4.71 10^6/uL (3.5-6.1); RED CELL DISTRIBUTION WIDTH 23.7 % (11.5-14.5); WHITE BLOOD COUNT 19.3 10^3/uL (4.5-11.0)
[2019-03-11 06:29] LABS: TROPONIN I < 0.01 ng/mL
[2019-03-11 06:55] LABS: ALB/GLOB RATIO 1.1 (1.1-1.8); ALT/SGPT 13 U/L (7-56); AST/SGOT 24 U/L (14-36); BLOOD UREA NITROGEN 8 mg/dL (7-21); CALCIUM 9.5 mg/dL (8.4-10.5); GFR NON-AFRICAN AMERICAN > 60
[2019-03-11] MEDS ORDERED: MethylPREDNISolone 40 mg Vial IVP SCH (07:00)
[2019-03-11 07:05] LABS: BAND 7 % (0-2); LYMPHOCYTE 10 % (22.0-35.0); NEUTROPHIL 79 % (50.0-70.0)
[2019-03-11 07:06] LABS: HYPOCHROMIA 2+; METAMYELOCYTE 1 %; MONOCYTE 3 % (1.0-6.0); PLATELET ESTIMATE NORMAL (NORMAL); POLYCHROMASIA SLIGHT
[2019-03-11 07:07] LABS: ANISOCYTOSIS 1+; OVALOCYTES SLIGHT
[2019-03-11 09:09] VITALS: O2SAT 99
[2019-03-11] MEDS ORDERED: Enoxaparin 40 mg Syringe SC SCH (10:00)
[2019-03-11 11:13] VITALS: RESP 16
--- NOTE | 2019-03-11 11:53 | CARD ---
APPROVED REPORT Date of service: 03/10/2019 EKG Measurement Heart [id number] <Conclusion> Sinus tachycardia Possible Left atrial enlargement Left ventricular hypertrophy Abnormal ECG
[2019-03-11 12:21] LABS: FOLATE 4.9 ng/mL
[2019-03-11 14:33] VITALS: BP 123/67; PULSE 106; TEMP 98.5
--- NOTE | 2019-03-11 18:05 | CP.PCM.DIS ---
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 Referral Routine Comment: ASTHMA EXACERBATION Physician Instructions: Reason For Exam: EVALUATION Transition In Care/Readmission Reduction Routine Comment: Physician Instructions: Reason For Exam: EVALUATION Time Spent in preparation of Discharge (in minutes): 45 Hospital Course - Lab Results Lab Results: Most Recent Lab Values WBC 19.3 10^3/uL (4.5-11.0) H 03/11/19 05:20 RBC 4.71 10^6/uL (3.5-6.1) 03/11/19 05:20 Hgb 7.8 g/dL (12.0-16.0) L 03/11/19 05:20 Hct 28.2 % (36.0-48.0) L 03/11/19 05:20 MCV 59.9 fl (80.0-105.0) L 03/11/19 05:20 MCH 16.6 pg (25.0-35.0) L 03/11/19 05:20 MCHC 27.7 g/dl (31.0-37.0) L 03/11/19 05:20 RDW 23.7 % (11.5-14.5) H 03/11/19 05:20 Plt Count 407 10^3/uL (120.0-450.0) 03/11/19 05:20 Neut % (Auto) 92.4 % (50.0-68.0) H 03/11/19 05:20 Lymph % (Auto) 5.5 % (22.0-35.0) L 03/11/19 05:20 Stewart % (Auto) 2.1 % (1.0-6.0) 03/11/19 05:20 Eos % (Auto) 0.0 % (1.5-5.0) L 03/11/19 05:20 Baso % (Auto) 0.0 % (0.0-3.0) 03/11/19 05:20 Lymph # (Auto) 1.1 (1.2-3.4) L 03/11/19 05:20 Stewart # (Auto) 0.4 (0.1-0.6) 03/11/19 05:20 Eos # (Auto) 0.0 (0.0-0.7) 03/11/19 05:20 Baso # (Auto) 0.00 K/mm3 (0.0-2.0) 03/11/19 05:20 Absolute Neuts (auto) 17.85 (1.4-6.5) H 03/11/19 05:20 Neutrophils % (Manual) 79 % (50.0-70.0) H 03/11/19 05:20 Band Neutrophils % 7 % (0-2) H 03/11/19 05:20 Lymphocytes % (Manual) 10 % (22.0-35.0) L 03/11/19 05:20 Monocytes % (Manual) 3 % (1.0-6.0) 03/11/19 05:20 Metamyelocytes % 1 % 03/11/19 05:20 Platelet Evaluation Normal (NORMAL) 03/11/19 05:20 Polychromasia Slight 03/11/19 05:20 Hypochromasia 2+ 03/11/19 05:20 Anisocytosis (manual) 1+ 03/11/19 05:20 Ovalocytes Slight 03/11/19 05:20 Sodium 142 mmol/L (132-148) 03/11/19 05:20 Potassium 4.4 mmol/L (3.6-5.0) 03/11/19 05:20 Chloride 108 mmol/L (98-107) H 03/11/19 05:20 Carbon Dioxide 25 mmol/L (21-33) 03/11/19 05:20 Anion Gap 14 (10-20) 03/11/19 05:20 BUN 8 mg/dL (7-21) 03/11/19 05:20 Creatinine 0.6 mg/dl (0.7-1.2) L 03/11/19 05:20 Est GFR ( Amer) > 60 03/11/19 05:20 Est GFR (Non-Af Amer) > 60 03/11/19 05:20 Random Glucose 129 mg/dL (70-110) H 03/11/19 05:20 Calcium 9.5 mg/dL (8.4-10.5) 03/11/19 05:20 Phosphorus 4.1 mg/dL (2.5-4.5) 03/11/19 18:00 Magnesium 2.2 mg/dL (1.7-2.2) 03/11/19 18:00 Iron 20 ug/dL (45-180) L 03/10/19 18:38 TIBC 458 ug/dL (265-497) 03/10/19 18:38 % Saturation 4 % (20-55) L 03/10/19 18:38 Ferritin 5.9 ng/mL 03/10/19 18:38 Total Bilirubin 0.3 mg/dL (0.2-1.3) 03/11/19 05:20 AST 24 U/L (14-36) 03/11/19 05:20 ALT 13 U/L (7-56) 03/11/19 05:20 Alkaline Phosphatase 47 U/L (38-126) 03/11/19 05:20 Troponin I < 0.01 ng/mL 03/11/19 05:20 Total Protein 7.7 g/dL (5.8-8.3) 03/11/19 05:20 Albumin 4.0 g/dL (3.0-4.8) 03/11/19 05:20 Globulin 3.7 gm/dL 03/11/19 05:20 Albumin/Globulin Ratio 1.1 (1.1-1.8) 03/11/19 05:20 Vitamin B12 295 pg/mL (239-931) 03/11/19 07:55 Folate 4.9 ng/mL 03/11/19 07:55 Influenza Typ A,B (EIA) Negative for flu a/b (NEGATIVE) 03/10/19 18:15 Blood Type O POSITIVE 03/10/19 17:35 Antibody Screen Negative 03/10/19 17:35 Crossmatch See Detail 03/10/19 17:35 BBK History Checked Patient has bt 03/10/19 17:35 - Hospital Course Hospital Course: 33 year old female with past medical history of asthma and iron deficiency anemia presents with shortness of breath, wheezing, cough with yellow sputum for 2 days. Patient also complains of diffuse body pain worse with movement and not relieved with tylenol, ibuprofen, and prednisone. Patient admitted for symptomatic anemia and asthma exacerbation. Hgb was 7 on admission with baseline 8-9. Transfuse 2 U of PRBCs, given IV/PO iron supplement. Iron studies consistent with iron deficiency anemia. Patient received solumedrol IV, bronchodilators, brovana and pulmicort for asthma exacerbation. Influenza a/b was negative. Patient was afebrile with leukocytosis likely due to steroid use. No infectious etiology suspected as symptoms improved with the above therapy. Patient is clinically stable today, energy level improved, respiratory symptoms resolved, afebrile, normotensive and clinically stabilized for home discharge today. Additional instructions as below. Discharge Exam - Head Exam Head Exam: ATRAUMATIC, NORMAL INSPECTION, NORMOCEPHALIC - Eye Exam Eye Exam: EOMI, Normal appearance, PERRL Pupil Exam: NORMAL ACCOMODATION, PERRL - ENT Exam ENT Exam: Mucous Membranes Moist - Neck Exam Neck exam: Normal Inspection - Respiratory Exam Respiratory Exam: Clear to PA & Lateral, NORMAL BREATHING PATTERN - Cardiovascular Exam Cardiovascular Exam: REGULAR RHYTHM, +S1, +S2 - GI/Abdominal Exam GI & Abdominal Exam: Normal Bowel Sounds - Extremities Exam Extremities exam: normal capillary refill, pedal pulses present - Back Exam Back exam: FULL ROM - Neurological Exam Neurological exam: Alert, CN II-XII Intact, Oriented x3, Reflexes Normal - Psychiatric Exam Psychiatric exam: Normal Affect, Normal Mood - Skin Skin Exam: Dry, Intact, Normal Color, Warm Discharge Plan - Discharge Medications Prescriptions: Albuterol/Ipratropium [Duoneb 3 mg/0.5 mg (3 ml) UD] 3 ml IH [id number] #6 neb Arformoterol [Brovana] 15 mcg IH [id number] #28 neb Budesonide [Pulmicort Respules] 0.5 mg IH [id number] #28 neb Docusate Sodium [Colace] 100 mg PO BID #14 capsule Ferrous Gluconate 324 mg PO TID #90 tablet Methylprednisolone [Medrol Dose Pack (21 tabs)] 4 mg PO DAILY #21 mg Multivitamin [Multiple Vitamins] 1 each PO DAILY #30 tablet - Follow Up Plan Condition: FAIR Disposition: HOME/ ROUTINE Instructions: Asthma, Adult (DC), Avoiding Asthma Triggers, Anemia (DC) Additional Instructions: Follow up with your primary care doctor Dr Aponte in 3-5 days. Follow up with your lan analyst Dr Jimenez in 1 week regarding your anemia, menstrual bleeding, need for oral contraceptive pills. Follow up with a lung doctor in 1 week regarding management of your asthma. Take iron tablets for your anemia. You are also given medrol dose pack, pulmicort and broavana for your asthma. You can take cepacol lozenges for your sore throat. Return to the emergency room for any new or worsening of symptoms. 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 Referral Routine Comment: ASTHMA EXACERBATION Physician Instructions: Reason For Exam: EVALUATION Transition In Care/Readmission Reduction Routine Comment: Physician Instructions: Reason For Exam: EVALUATION Hospital Course - Lab Results Lab Results: Most Recent Lab Values WBC 19.3 10^3/uL (4.5-11.0) H 03/11/19 05:20 RBC 4.71 10^6/uL (3.5-6.1) 03/11/19 05:20 Hgb 7.8 g/dL (12.0-16.0) L 03/11/19 05:20 Hct 28.2 % (36.0-48.0) L 03/11/19 05:20 MCV 59.9 fl (80.0-105.0) L 03/11/19 05:20 MCH 16.6 pg (25.0-35.0) L 03/11/19 05:20 MCHC 27.7 g/dl (31.0-37.0) L 03/11/19 05:20 RDW 23.7 % (11.5-14.5) H 03/11/19 05:20 Plt Count 407 10^3/uL (120.0-450.0) 03/11/19 05:20 Neut % (Auto) 92.4 % (50.0-68.0) H 03/11/19 05:20 Lymph % (Auto) 5.5 % (22.0-35.0) L 03/11/19 05:20 Stewart % (Auto) 2.1 % (1.0-6.0) 03/11/19 05:20 Eos % (Auto) 0.0 % (1.5-5.0) L 03/11/19 05:20 Baso % (Auto) 0.0 % (0.0-3.0) 03/11/19 05:20 Lymph # (Auto) 1.1 (1.2-3.4) L 03/11/19 05:20 Stewart # (Auto) 0.4 (0.1-0.6) 03/11/19 05:20 Eos # (Auto) 0.0 (0.0-0.7) 03/11/19 05:20 Baso # (Auto) 0.00 K/mm3 (0.0-2.0) 03/11/19 05:20 Absolute Neuts (auto) 17.85 (1.4-6.5) H 03/11/19 05:20 Neutrophils % (Manual) 79 % (50.0-70.0) H 03/11/19 05:20 Band Neutrophils % 7 % (0-2) H 03/11/19 05:20 Lymphocytes % (Manual) 10 % (22.0-35.0) L 03/11/19 05:20 Monocytes % (Manual) 3 % (1.0-6.0) 03/11/19 05:20 Metamyelocytes % 1 % 03/11/19 05:20 Platelet Evaluation Normal (NORMAL) 03/11/19 05:20 Polychromasia Slight 03/11/19 05:20 Hypochromasia 2+ 03/11/19 05:20 Anisocytosis (manual) 1+ 03/11/19 05:20 Ovalocytes Slight 03/11/19 05:20 Sodium 142 mmol/L (132-148) 03/11/19 05:20 Potassium 4.4 mmol/L (3.6-5.0) 03/11/19 05:20 Chloride 108 mmol/L (98-107) H 03/11/19 05:20 Carbon Dioxide 25 mmol/L (21-33) 03/11/19 05:20 Anion Gap 14 (10-20) 03/11/19 05:20 BUN 8 mg/dL (7-21) 03/11/19 05:20 Creatinine 0.6 mg/dl (0.7-1.2) L 03/11/19 05:20 Est GFR ( Amer) > 60 03/11/19 05:20 Est GFR (Non-Af Amer) > 60 03/11/19 05:20 Random Glucose 129 mg/dL (70-110) H 03/11/19 05:20 Calcium 9.5 mg/dL (8.4-10.5) 03/11/19 05:20 Phosphorus 4.1 mg/dL (2.5-4.5) 03/11/19 18:00 Magnesium 2.2 mg/dL (1.7-2.2) 03/11/19 18:00 Iron 20 ug/dL (45-180) L 03/10/19 18:38 TIBC 458 ug/dL (265-497) 03/10/19 18:38 % Saturation 4 % (20-55) L 03/10/19 18:38 Ferritin 5.9 ng/mL 03/10/19 18:38 Total Bilirubin 0.3 mg/dL (0.2-1.3) 03/11/19 05:20 AST 24 U/L (14-36) 03/11/19 05:20 ALT 13 U/L (7-56) 03/11/19 05:20 Alkaline Phosphatase 47 U/L (38-126) 03/11/19 05:20 Troponin I < 0.01 ng/mL 03/11/19 05:20 Total Protein 7.7 g/dL (5.8-8.3) 03/11/19 05:20 Albumin 4.0 g/dL (3.0-4.8) 03/11/19 05:20 Globulin 3.7 gm/dL 03/11/19 05:20 Albumin/Globulin Ratio 1.1 (1.1-1.8) 03/11/19 05:20 Vitamin B12 295 pg/mL (239-931) 03/11/19 07:55 Folate 4.9 ng/mL 03/11/19 07:55 Influenza Typ A,B (EIA) Negative for flu a/b (NEGATIVE) 03/10/19 18:15 Blood Type O POSITIVE 03/10/19 17:35 Antibody Screen Negative 03/10/19 17:35 Crossmatch See Detail 03/10/19 17:35 BBK History Checked Patient has bt 03/10/19 17:35 Attending/Attestation - Attestation I have personally seen and examined this patient.: Yes I have fully participated in the care of the patient.: Yes I have reviewed all pertinent clinical information, including history, physical exam and plan: Yes Notes (Text): 03/11/19 18:48 Attending note; Patient seen and examined with resident. Patient is alert and awake. Patient is more alert and awake. Generalized weakness is improving. Getting second unit of blood. Patient is a 33 year old female with past medical history of asthma and iron deficiency anemia presents with shortness of breath, wheezing, cough with yellow sputum for 2 days. Patient also complains of diffuse body pain. 1. Acute asthma exacerbation; started on duo nebs, IV Solu-Medrol, Pulmicort. 2. Severe symptomatic iron deficiency anemia PRBC transfusion ordered. Consent obtained. Risks and benefits explained to the patient in detail. Hemoglobin is 7.8 after 1 unit of transfusion. Patient will complete second unit. 3. Dysfunctional uterine bleeding; patient currently has no active bleeding. Used to take oral contraceptive pills. Stopped 2 months ago. Advised to follow-up with SWING MANAGER as outpatient. 4. Myalgia; influenza is negative. Chest x-ray is negative. 5. Chest discomfort; EKG is normal. Cardiac enzymes x 3 negative. Discharge home today. Advised to continue iron supplementation and follow-up CBC next week with PMD. Advised to follow-up with reprographics technician as needed. Upon discharge the patient will follow up with PMD Dr. Aponte. Patient needs close follow-up with SWING MANAGER as outpatient.
[2019-03-12 09:11] LABS: MCH 17.1 pg (27.0-33.0)
[2019-03-15 07:09] LABS: HEMOGLOBIN A 97.3 Percent (>96.0); HEMOGLOBIN A2 1.7 Percent (1.8-3.5)
== END 2019-03-11 16:00 | disposition home or self-care (01) ==
LOC: ED 12:57 → ERH 16:06 → 3RNO 17:56
PROVIDERS: ADMIT Internal Medicine; ATTEND Internal Medicine
DX: J45.901 Unspecified asthma with (acute) exacerbation (principal); D50.9 Iron deficiency anemia, unspecified; N93.8 Other specified abnormal uterine and vaginal bleeding; D72.829 Elevated white blood cell count, unspecified; G47.30 Sleep apnea, unspecified; Z82.49 Family history of ischemic heart disease and other diseases of the circulatory system; Z83.3 Family history of diabetes mellitus; Z82.5 Family history of asthma and other chronic lower respiratory diseases
CPT/HCPCS: 36415; 36430; 71045; 80053; 81025; 82607; 82728; 82746; 83021; 83540; 83550; 83735; 84100; 84484; 85014; 85018; 85025; 85041; 86850; 86900; 86920; 87804; 93005; 94640; 96365; 96375; 96376; 99285; G0378; J1756; J2920; J2930; P9016